=== PATIENT | female | born 1935 | race Caucasian/White ===

== ENCOUNTER 2022-08-21 07:58 | Day surgery (SDC) | payer MEDICARE, OTHER ==
[~2022-08-21 07:58] MED LIST: Bupivacaine 0.5% 50 ML MDV ONE; Lidocaine 1% with EPINEPHrine 1:100,000 50 ML MDV ONE; Propofol 200 MG/20 ML SDV ONE; fentaNYL 100 MCG/2 ML SDV ONE
[2022-08-21] MEDS ORDERED: Acetaminophen 500 MG Tab PO ONE (08:15)
[2022-08-21] MEDS ORDERED: Dextrose 5%-Lactated Ringers 1,000 ML IV SCH (08:30)
[2022-08-21] MEDS ORDERED: ceFAZolin 2 GM in Sodium Chloride 0.9% 50 ML IV ONE (09:15)
[2022-08-21] MEDS ORDERED: Bacitracin Oint 1 GM U/D Packet ONE (10:40)
== END 2022-08-21 12:10 | disposition home or self-care (01) ==
LOC: JP.SDS 07:58
PROVIDERS: ATTEND Surgery
DX: C44.729 Squamous cell carcinoma of skin of left lower limb, including hip (principal); I48.91 Unspecified atrial fibrillation; Z88.8 Allergy status to other drugs, medicaments and biological substances; Z91.041 Radiographic dye allergy status; Z79.01 Long term (current) use of anticoagulants
CPT/HCPCS: 11606; 12032; A9270; J0690; J2704; J3010; J3490; J7121; 88305